=== PATIENT | female | born 1960 | race Caucasian/White ===

== ENCOUNTER 2023-01-03 11:13 | Emergency (ER) | payer OTHER, SELFPAY ==
--- NOTE | 2023-01-03 11:25 | ED.GENADULT ---
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 Patient states that she missed a dose of her blood pressure medication a few days ago and ever since, she has felt like her blood pressure is higher. Patient states that ever since she has been taking her medications as perscribed. Patient states that she has noticed her blood pressure is higher and she had a brief episode of a headache and blurry vision but both of those symptoms have now resolved. Patient denies any current dizziness, lightheadedness, abdominal pain, nausea, vomiting, fever, chills, blurry vision, double vision, loss of vision, chest pain, difficulty breathing, shortness of breath, back pain, night sweats, pain with urination, increased urinary frequency, increased urinary urgency, blood in [his/her/their] urine or stool, syncope or a near syncopal episode, recent trauma or falls, bowel incontinence, bladder incontinence, bowel retention, bladder retention, or any other complaints at this time. <SAMI Umana - Last Filed: 01/03/23 19:15> Severity: mild <SAMI Umana - Last Filed: 01/03/23 19:15> Severity scale (1-10): 1 <SAMI Umana - Last Filed: 01/03/23 19:15> Relieving factors: none <SAMI Umana - Last Filed: 01/03/23 19:15> Exacerbating factors: none <SAMI Umana Last Filed: 01/03/23 19:15> Associated symptoms: denies other symptoms <SAMI Umana Last Filed: 01/03/23 19:15> Treatments prior to arrival: none <SAMI Umana Last Filed: 01/03/23 19:15> Related Data Home medications: Previous Rx's Medication Instructions Recorded amlodipine 5 mg tablet 5 mg PO DAILY 30 days #30 tabs 01/03/23 <SAMI Nova Last Filed: 01/03/23 11:30> Allergies/adverse reactions: Allergies Allergy/AdvReac Type Severity Reaction Status Date / Time aspirin Allergy Intermediate Angioedema Verified 01/03/23 11:30 ibuprofen Allergy Intermediate Angioedema Verified 01/03/23 11:30 Sulfa (Sulfonamide Allergy Intermediate Rash Verified 01/03/23 11:30 Antibiotics) <SAMI Nova Last Filed: 01/03/23 11:30> Review of Systems Constitutional: Constitutional: Reports no additional constitutional complaints, Denies chills, Denies fever(s) and Denies night sweats <SAMI Umana Last Filed: 01/03/23 19:15> Eyes: Eyes: Reports no additional eye complaints, Denies blurry vision, Denies change in vision, Denies diplopia, Denies eye discharge, Denies loss of vision and Denies eye pain <SAMI Umana Last Filed: 01/03/23 19:15> ENT: Denies dizziness <SAMI Umana Last Filed: 01/03/23 19:15> Cardiovascular: Cardiovascular: Reports no additional cardiovascular complaints, Denies chest pain, Denies lightheadedness, Denies Loss of Consciousness and Denies dyspnea <SAMI Umana - Last Filed: 01/03/23 19:15> Respiratory: Respiratory: Reports no additional respiratory complaints and Denies dyspnea <SAMI Umana Last Filed: 01/03/23 19:15> Gastrointestinal: Gastrointestinal: Reports no additional gastrointestinal complaints, Denies abdominal pain, Denies melena, Denies hematochezia, Denies change in bowel habits and Denies change in stool character <SAMI Umana Last Filed: 01/03/23 19:15> Genitourinary: Genitourinary: Denies hematuria, Denies urinary frequency, Denies dysuria, Denies urinary incontinence, Denies urinary hesitancy and Denies urinary urgency <SAMI Umana - Last Filed: 01/03/23 19:15> Musculoskeletal: Musculoskeletal: Reports no additional musculoskeletal complaints, Denies numbness and Denies tingling <SAMI Umana - Last Filed: 01/03/23 19:15> Neurologic: Denies dizziness, Denies loss of vision, Denies numbness and Denies tingling <SAMI Umana - Last Filed: 01/03/23 19:15> Psychiatric: Psychiatric: Reports no additional psychiatric complaints <SAMI Umana - Last Filed: 01/03/23 19:15> Endocrine: Endocrine: Reports no additional endocrine complaints <SAMI Umana - Last Filed: 01/03/23 19:15> Hematologic/Lymphatic: Hematologic/Lymphatic: Reports no additional hematologic/lymphatic complaints <SAMI Umana - Last Filed: 01/03/23 19:15> Allergic/Immunologic: Allergic/Immunologic: Reports no additional allergic/immunologic complaints <SAMI Umana - Last Filed: 01/03/23 19:15> FORMERLY [facility], 1928–1983 Past Medical History Attestation statement: The following information was validated with the patient. (all information validated with the patient's daughter) <SAMI Umana - Last Filed: 01/03/23 19:15> Source: old records reviewed, obtained from family (patient's daughter) and nursing notes reviewed <SAMI Umana - Last Filed: 01/03/23 19:15> Social History Social History: Social History Advance Directives: No Advance Directives Information Provided: No <SAMI Nova - Last Filed: 01/03/23 11:30> Physical Exam ED Vital Signs: Vital Signs - 24 hr 01/03/23 11:26 01/03/23 15:43 01/03/23 16:25 Temperature 98.1 F 97.9 F Pulse Rate 94 75 73 Respiratory Rate 18 16 18 Blood Pressure 192/105 H 179/99 H 166/88 H Pulse Oximetry 98 98 98 Oxygen Delivery Method Room Air Room Air Room Air BMI result Body Mass Index 24.7 <SAMI Nova - Last Filed: 01/03/23 11:30> Vital Signs - 24 hr 01/03/23 11:26 01/03/23 15:43 01/03/23 16:25 Temperature 98.1 F 97.9 F Pulse Rate 94 75 73 Respiratory Rate 18 16 18 Blood Pressure 192/105 H 179/99 H 166/88 H Pulse Oximetry 98 98 98 Oxygen Delivery Method Room Air Room Air Room Air BMI result Body Mass Index 24.7 <SAMI Umana - Last Filed: 01/03/23 19:15> Const General: cooperative, no acute distress, alert and awake <SAIM Umana - Last Filed: 01/03/23 19:15> Nutritional Appearance: well nourished <SAMI Umana - Last Filed: 01/03/23 19:15> Orientation/consciousness: patient oriented x3 <SAMI Umana - Last Filed: 01/03/23 19:15> Limitations: no limitations <SAMI Umana - Last Filed: 01/03/23 19:15> HENMT Head: Yes normal to inspection and Yes atraumatic <SAMI Umana - Last Filed: 01/03/23 19:15> Ears: hearing grossly normal bilaterally and external ears normal <SAMI Umana Last Filed: 01/03/23 19:15> General nose exam: Normal external nose present, no nasal discharge noted and no epistaxis <SAMI Umana - Last Filed: 01/03/23 19:15> Face and sinus: Yes normal facial exam, No abrasion and No laceration <SAMI Umana - Last Filed: 01/03/23 19:15> Mouth: Normal oral and palatal mucosa present, no drooling and no muffled voice <SAMI Umana - Last Filed: 01/03/23 19:15> Eyes General: appearance normal, both eyes and all related structures <SAMI Umana Last Filed: 01/03/23 19:15> Periorbital: periorbital findings normal <SAMI Umana Last Filed: 01/03/23 19:15> Eyelids: Yes eyelids normal <Lakesha Mix VT - Last Filed: 01/03/23 19:15> Conjunctivae: conjunctivae normal <Lakesha Mix VT - Last Filed: 01/03/23 19:15> Pupils: Equal, round and reactive pupils present <Lakesha Mix VT - Last Filed: 01/03/23 19:15> EOM: EOMs intact bilaterally <Lakesha Mix VT - Last Filed: 01/03/23 19:15> Neck Neck: Yes normal visual inspection, Yes full ROM and Yes no lymphadenopathy <Lakesha Mix VT - Last Filed: 01/03/23 19:15> Chest Chest palpation & inspection: normal inspection of the chest <Lakesha Mix VT - Last Filed: 01/03/23 19:15> Resp Effort & Inspection: normal respiratory effort and able to speak in complete sentences <Lakesha Mix VT - Last Filed: 01/03/23 19:15> Auscultation: clear to auscultation bilaterally <Lakesha Mix VT - Last Filed: 01/03/23 19:15> Cardio Rate: regular rate <Lakesha Mix VT - Last Filed: 01/03/23 19:15> Rhythm: regular rhythm <Lakesha Mix VT - Last Filed: 01/03/23 19:15> GI Inspection: Yes normal to inspection <Lakesha Mix VT - Last Filed: 01/03/23 19:15> Palpation (GI): Soft to palpation, not firm, nontender, no guarding and not rigid <Lakesha Mix VT - Last Filed: 01/03/23 19:15> Neuro General: patient oriented x3 and moves all extremities <Lakesha Mix VT - Last Filed: 01/03/23 19:15> Cranial nerves: Yes Equal, round and reactive pupils present <Lakesha Mix VT - Last Filed: 01/03/23 19:15> Cognition (Neuro): normal cognition <Lakesha Mix VT - Last Filed: 01/03/23 19:15> Motor exam (neuro): 5/5 motor strength present throughout <SAMI Umana - Last Filed: 01/03/23 19:15> Sensory Exam: Normal double simultaneous stimulation for sensation <SAMI Umana - Last Filed: 01/03/23 19:15> Coordination: [id number] test normal <SAMI Umana - Last Filed: 01/03/23 19:15> Extrem General: Yes normal to inspection, Yes full ROM and Yes capillary refill normal <SAMI Umana - Last Filed: 01/03/23 19:15> Psych Appearance: grossly normal <SAMI Umana - Last Filed: 01/03/23 19:15> Mental Status: mental status grossly normal <SAMI Umana - Last Filed: 01/03/23 19:15> Affect: normal affect <SAMI Umana - Last Filed: 01/03/23 19:15> Attitude: cooperative <SAMI Umana - Last Filed: 01/03/23 19:15> Thought process: Normal thought process present <SAMI Umana - Last Filed: 01/03/23 19:15> Thought content: Normal thought content present <SAMI Umana - Last Filed: 01/03/23 19:15> Insight: Good insight present (Psych) <SAMI Umana - Last Filed: 01/03/23 19:15> Course Course Course Narrative: RME - 14-[id number]-orn-iranian speaking female, with a history of hypertension, presenting to the emergency department with high blood pressure x 4 days. She states that she missed one day of her medication (lisinopril and amlodipine) several days ago and has noted that over the last few days her blood pressure remains to be elevated despite her taking her medication. Her BP at home has been elevated around 167/94. She reports some blurred vision and posterior headache. 192/105 in triage today. Patient appears comfortable in no acute distress. Plan: EKG, labs, <SAMI Nova - Last Filed: 01/03/23 11:30> Medical Decision Making Medical Decision Making [facility] Narrative: Patient is a 62 year old assigned female at with a history of hypertension presenting to the emergency department today with persistently elevated blood pressure. Patient's physical exam was unremarkable. Patient's blood work was unremarkable. Patient's EKG was unremarkable. I explained my physical exam findings as well as all test results to the patient and the patient's daughter. I answered all questions asked by the patient and the patient's daughter. Patient is currently taking 40mg of lisinopril and 5mg of amlodipine in the morning only. I recommended the patient double her dose of amlodipine by taking an additional 5mg at night time and maintaining a blood pressure diary to show her PCP when she follows up with them next week. I stressed the importance of the patient taking the rest of her medication as prescribed. I stressed the importance of the patient following up with her primary care provider. I stressed the importance of the patient returning to the emergency department immediately if she were to develop any dizziness, shortness of breath, difficulty breathing, chest pain, blurry vision, loss of vision, nausea, vomiting, abdominal pain, fever, chills, back pain, or any other complaints. Patient and the patient's daughter verbalized agreement and understanding with this treatment plan and discharge. <SAMI Umana - Last Filed: 01/03/23 19:15> Differential Diagnosis Differential Diagnoses: The differential diagnosis associated with the presentation includes <SAMI Umana - Last Filed: 01/03/23 19:15> HTN <SAMI Umana - Last Filed: 01/03/23 19:15> Lab Data MDM Lab Attestation statement: I reviewed the patient's lab results. <SAMI Umana - Last Filed: 01/03/23 19:15> Result Diagrams: 01/03/23 11:47 01/03/23 11:47 <SAMI Nova - Last Filed: 01/03/23 11:30> Labs: Lab Results 01/03/23 01/03/23 01/03/23 Range/Units 11:47 11:47 15:40 WBC 6.9 (4.8-10.8) X10*3/uL RBC 5.06 (4.20-5.50) X10*6/uL Hgb 13.7 (12.0-16.0) g/dl Hct 42.0 (37.0-47.0) % MCV 83.0 (80.0-98.0) fL MCH 27.1 (27.0-33.0) pg MCHC 32.6 (31.0-35.0) g/dl RDW 15.1 (11.0-16.0) % Plt Count 356 (160-400) X10*3/uL MPV 11.0 (9.4-12.3) fL Immature Gran % (Auto) 0.3 (0.0-0.4) % Neut % (Auto) 50.5 (45-73) % Lymph % (Auto) 39.1 (20-40) % Ceiba % (Auto) 8.0 (2-11) % Eos % (Auto) 1.4 (0-4) % Baso % (Auto) 0.7 (0-2) % Lymph # (Auto) 2.7 (1.2-4.9) X10*3/uL Ceiba # (Auto) 0.6 (0.1-1.2) X10*3/uL Eos # (Auto) 0.1 (0.0-0.4) X10*3/uL Baso # (Auto) 0.1 (0.0-0.2) X10*3/uL Abs Immat Gran (auto) 0.02 (0.00-0.03) X10*3/uL Absolute Neuts (auto) 3.5 (2.0-8.3) x10*3/uL Absolute Nucleated RBC 0.000 (0.0-0.012) X10*3/uL Nucleated RBC % (auto) 0.0 (0.0-0.2) /100WBC Sodium 142 (135-145) mmol/L Potassium 4.6 (3.3-5.1) mmol/L Chloride 108 (96-108) mmol/L Carbon Dioxide 27 (22-29) mmol/L Anion Gap 12 (12-20) BUN 11 (9-16) mg/dL Creatinine 0.81 (0.5-1.4) mg/dL Estim Creat Clear Calc 64.6 Estimated GFR > 60 Random Glucose 143 H (60-115) mg/dL Calcium 10.1 (8.4-10.2) mg/dL Magnesium 2.3 (1.6-2.6) mg/dL Total Bilirubin 0.6 (0.0-1.0) mg/dL Direct Bilirubin < 0.2 (0.0-0.5) mg/dL AST 20 (5-31) U/L ALT 26 (0-31) U/L Alkaline Phosphatase 70 (39-117) U/L Total Protein 7.7 (6.5-8.0) g/dL Albumin 4.8 (3.5-5.0) g/dL Urine Color Yellow Urine Appearance Clear Urine pH 6.5 (5.0-9.0) Ur Specific Murray 1.010 (1.005-1.025) Urine Protein Negative (Neg-Trace) mg/dL Urine Glucose (UA) Negative (Negative) mg/dL Urine Ketones Negative (Negative) mg/dL Urine Blood Negative (Negative) Urine Nitrite Negative (Negative) Ur Leukocyte Esterase Trace H (Negative) Urine RBC 0-2 (0-2) /HPF Urine WBC 0-5 (0-5) /HPF Ur Squamous Epith Cells 0-2 (0-2) /HPF Urine Bacteria None Seen (None Seen) Hyaline Casts 0-2 (0-2) /LPF <SAMI Nova - Last Filed: 01/03/23 11:30> Lab Results 01/03/23 01/03/23 01/03/23 Range/Units 11:47 11:47 15:40 WBC 6.9 (4.8-10.8) X10*3/uL RBC 5.06 (4.20-5.50) X10*6/uL Hgb 13.7 (12.0-16.0) g/dl Hct 42.0 (37.0-47.0) % MCV 83.0 (80.0-98.0) fL MCH 27.1 (27.0-33.0) pg MCHC 32.6 (31.0-35.0) g/dl RDW 15.1 (11.0-16.0) % Plt Count 356 (160-400) X10*3/uL MPV 11.0 (9.4-12.3) fL Immature Gran % (Auto) 0.3 (0.0-0.4) % Neut % (Auto) 50.5 (45-73) % Lymph % (Auto) 39.1 (20-40) % Ceiba % (Auto) 8.0 (2-11) % Eos % (Auto) 1.4 (0-4) % Baso % (Auto) 0.7 (0-2) % Lymph # (Auto) 2.7 (1.2-4.9) X10*3/uL Ceiba # (Auto) 0.6 (0.1-1.2) X10*3/uL Eos # (Auto) 0.1 (0.0-0.4) X10*3/uL Baso # (Auto) 0.1 (0.0-0.2) X10*3/uL Abs Immat Gran (auto) 0.02 (0.00-0.03) X10*3/uL Absolute Neuts (auto) 3.5 (2.0-8.3) x10*3/uL Absolute Nucleated RBC 0.000 (0.0-0.012) X10*3/uL Nucleated RBC % (auto) 0.0 (0.0-0.2) /100WBC Sodium 142 (135-145) mmol/L Potassium 4.6 (3.3-5.1) mmol/L Chloride 108 (96-108) mmol/L Carbon Dioxide 27 (22-29) mmol/L Anion Gap 12 (12-20) BUN 11 (9-16) mg/dL Creatinine 0.81 (0.5-1.4) mg/dL Estim Creat Clear Calc 64.6 Estimated GFR > 60 Random Glucose 143 H (60-115) mg/dL Calcium 10.1 (8.4-10.2) mg/dL Magnesium 2.3 (1.6-2.6) mg/dL Total Bilirubin 0.6 (0.0-1.0) mg/dL Direct Bilirubin < 0.2 (0.0-0.5) mg/dL AST 20 (5-31) U/L ALT 26 (0-31) U/L Alkaline Phosphatase 70 (39-117) U/L Total Protein 7.7 (6.5-8.0) g/dL Albumin 4.8 (3.5-5.0) g/dL Urine Color Yellow Urine Appearance Clear Urine pH 6.5 (5.0-9.0) Ur Specific Murray 1.010 (1.005-1.025) Urine Protein Negative (Neg-Trace) mg/dL Urine Glucose (UA) Negative (Negative) mg/dL Urine Ketones Negative (Negative) mg/dL Urine Blood Negative (Negative) Urine Nitrite Negative (Negative) Ur Leukocyte Esterase Trace H (Negative) Urine RBC 0-2 (0-2) /HPF Urine WBC 0-5 (0-5) /HPF Ur Squamous Epith Cells 0-2 (0-2) /HPF Urine Bacteria None Seen (None Seen) Hyaline Casts 0-2 (0-2) /LPF <SAMI Umana - Last Filed: 01/03/23 19:15> Independent Interpretation I performed an independent interpretation of an: EKG <SAMI Umana - Last Filed: 01/03/23 19:15> Interpretation: Vent. Rate: 074 BPM ? ? Atrial Rate: 074 BPM P-R Int: 128 ms? QRS Dur: 140 ms QT Int: 418 ms ? ? ? P-R-T Axes: 052 038 127 degrees QTc Int: 463 ms ? Normal sinus rhythm Left bundle branch block Abnormal ECG No previous ECGs available ? Electronically Signed By:HERRERA GARCIA Dictated By: Herrera Garcia MD Signed By: Electronically signed by Herrera Garcia MD 01/03/23 1444 <SAMI Umana - Last Filed: 01/03/23 19:15> Independent Historian Clinical information obtained from an independent historian. History obtained from or confirmed by: Other (patient's daughter) <SAMI Umana - Last Filed: 01/03/23 19:15> Discharge Plan Discharge Clinical Impression: Hypertension <SAMI Nova - Last Filed: 01/03/23 11:30> Patient Disposition: Home, Self-Care <SAMI Nova - Last Filed: 01/03/23 11:30> Instructions: Hypertension (ED) <SAMI Nova - Last Filed: 01/03/23 11:30> Additional Instructions: Follow up with your primary care provider. Return to the emergency department immediately if your symptoms worsen or if you develop any dizziness, shortness of breath, difficulty breathing, chest pain, blurry vision, loss of vision, nausea, vomiting, abdominal pain, fever, chills, back pain, or any other complaints. Tanesha un seguimiento con ambrosio proveedor de atenci?n primaria. Regrese a la sade de emergencias de inmediato si jaiden s?ntomas empeoran o si presenta mareos, dificultad para respirar, dolor de pecho, visi?n borrosa, p?rdida de la visi?n, n?useas, v?mitos, dolor abdominal, fiebre, escalofr?os, dolor de espalda o cualquier otras quejas. <SMAI Nova - Last Filed: 01/03/23 11:30> Prescriptions: New amlodipine 5 mg tablet 5 mg PO DAILY 30 Days Qty: 30 0RF Rx Instructions: TAKE BEFORE BED - [facility] <SAMI Nova - Last Filed: 01/03/23 11:30> Referrals: Tom Sanford MD [Primary Care Provider] - <SAMI Nova - Last Filed: 01/03/23 11:30> Interventions: ED Discharge Assessment Last Done: 01/03/23 17:06 <SAMI Nova - Last Filed: 01/03/23 11:30> Discharge Date/Time: 01/03/23 17:06 <SAMI Nova - Last Filed: 01/03/23 11:30> Print Language: Malay <SAMI Nova - Last Filed: 01/03/23 11:30>
[2023-01-03 11:26] VITALS: BP 192/105; PULSE 94; RESP 18; TEMP 36.7; O2SAT 98; BMI 24.7
--- NOTE | 2023-01-03 11:31 | ECG_ITS ---
Test Reason : htn Blood Pressure : / mmHG Vent. Rate : 074 BPM Atrial Rate : 074 BPM P-R Int : 128 ms QRS Dur : 140 ms QT Int : 418 ms P-R-T Axes : 052 038 127 degrees QTc Int : 463 ms Normal sinus rhythm Left bundle branch block Abnormal ECG No previous ECGs available Referred By: Tati Beltran Electronically Signed By:SOFI GARCIA
--- NOTE | 2023-01-03 11:48 | MHC.EDTECH ---
EKG completed and signed by attending. labs collected and sent
[2023-01-03 11:56] LABS: MANUAL DIFF FLAG NO
[2023-01-03 11:59] LABS: Basophils Absolute Auto 0.1 X10*3/uL (0.0-0.2); Basophils Percent Auto 0.7 % (0-2); Eosinophils Absolute Auto 0.1 X10*3/uL (0.0-0.4); Eosinophils Percent Auto 1.4 % (0-4); Hemoglobin 13.7 g/dl (12.0-16.0); Imm Gran Abs Auto 0.02 X10*3/uL (0.00-0.03); Imm Gran Pct Auto 0.3 % (0.0-0.4); Lymphocytes Absolute Auto 2.7 X10*3/uL (1.2-4.9); Lymphocytes Percent Auto 39.1 % (20-40); Mean Corpuscular HGB Conc 32.6 g/dl (31.0-35.0); Mean Corpuscular Hemoglobin 27.1 pg (27.0-33.0); Monocytes Absolute Auto 0.6 X10*3/uL (0.1-1.2); Neutrophils Absolute Auto 3.5 x10*3/uL (2.0-8.3); Neutrophils Percent Auto 50.5 % (45-73); Platelet Count 356 X10*3/uL (160-400); Red Blood Count 5.06 X10*6/uL (4.20-5.50); Red Cell Distribution Width 15.1 % (11.0-16.0); White Blood Count 6.9 X10*3/uL (4.8-10.8)
[2023-01-03 12:14] LABS: Alanine Aminotransferase 26 U/L (0-31); Albumin Level 4.8 g/dL (3.5-5.0); Alkaline Phosphatase 70 U/L (39-117); Anion Gap 12 (12-20); Aspartate Amino Transferase 20 U/L (5-31); Bilirubin Direct < 0.2 mg/dL (0.0-0.5); Bilirubin Total 0.6 mg/dL (0.0-1.0); Blood Urea Nitrogen 11 mg/dL (9-16); Calcium 10.1 mg/dL (8.4-10.2); Carbon Dioxide 27 mmol/L (22-29); Chloride 108 mmol/L (96-108); Creatinine Clr Calc Pharmacy 64.6; Estimated Glomerular Filt Rate > 60; Glucose Random 143 mg/dL (60-115); Magnesium 2.3 mg/dL (1.6-2.6); Potassium 4.6 mmol/L (3.3-5.1); Sodium 142 mmol/L (135-145); Total Protein 7.7 g/dL (6.5-8.0)
--- NOTE | 2023-01-03 15:41 | MHC.EDTECH ---
pt urine sample collected and sent to lab .
[2023-01-03 15:43] VITALS: BP 179/99; PULSE 75; RESP 16; TEMP 36.6; O2SAT 98
--- NOTE | 2023-01-03 15:44 | MHC.EDTECH ---
PT VITALS WAS RE CHECK IN TRIAGE ,RN FAY IS AWARE OF PT RESULT .
[2023-01-03 15:56] LABS: Appearance Urine Clear; Color Urine Yellow; Glucose Urine UA Negative (Negative); Leukocyte Esterase Urine Trace (Negative); Nitrite Urine Negative (Negative); PH 6.5 (5.0-9.0); UMIC TRIGGER UACC YES; Urine Blood Negative (Negative); Urine Ketones Negative (Negative); Urine Protein Negative (Neg-Trace)
[2023-01-03 15:59] LABS: Bacteria Urine None Seen (None Seen); Hyaline Casts Urine 0-2 /LPF (0-2); RBC Urine 0-2 /HPF (0-2); Squamous Epithelial Cell Urine 0-2 /HPF (0-2); WBC Urine 0-5 /HPF (0-5)
[2023-01-03 16:25] VITALS: BP 166/88; PULSE 73; RESP 18; O2SAT 98
== END 2023-01-03 17:06 | disposition home or self-care (01) ==
PROVIDERS: Physician Assistant; Emergency Provider Internal Medicine; PCP Internal Medicine
DX: I10 Essential (primary) hypertension (principal); R51.9 Headache, unspecified; H53.8 Other visual disturbances
CPT/HCPCS: 36415; 80048; 80076; 81001; 83735; 85025; 93005; 99283; 99284